=== PATIENT | male | born 1975 | race African-American/Black ===

== ENCOUNTER 2020-09-12 10:58 | Inpatient (IN) | payer MEDICAID, OTHER ==
[~2020-09-12] VITALS: Ht 188 cm; Wt 112.0 kg
[2020-09-12 13:17] LABS: CLARITY URINE CLEAR (CLEAR); COLOR URINE DARK YELLOW (YELLOW); KETONES URINE 3+ (NEGATIVE); LEUKOCYTE ESTERASE URINE NEGATIVE (NEGATIVE); NITRITE URINE NEGATIVE (NEGATIVE); OCCULT BLOOD URINE TRACE (NEGATIVE); PH URINE 5.5 (4.5-8.0); PROTEIN URINE 2+ (NEGATIVE); SPECIFIC GRAVITY URINE 1.019 (1.005-1.030)
[2020-09-12 13:38] LABS: HEMOGLOBIN. 14.6 g/dL (14.0-18.0); MEAN CORPUSCULAR VOLUME 96.5 fL (80.0-94.0); MEAN PLATELET VOLUME 9.4 fl (7.4-10.4); PLATELET 115 x1000/uL (130-400); RED BLOOD CELL COUNT 4.56 mill/uL (4.7-6.1); RED CELL DISTRIBUTION WIDTH 14.5 % (11.6-14.6)
[2020-09-12 13:48] LABS: CHLORIDE 100 mEq/L (98-107)
[2020-09-12 13:52] LABS: ETHANOL BLOOD < 10 mg/dL
[2020-09-12 14:12] LABS: *BARBITURATES SCREEN URINE NEGATIVE (NEGATIVE); *BENZODIAZEPINES SCREEN URINE NEGATIVE (NEGATIVE); *COCAINE SCREEN URINE NEGATIVE (NEGATIVE)
[2020-09-12 14:13] LABS: *AMPHETAMINES SCREEN URINE NEGATIVE (NEGATIVE); CANNABINOID URINE SCREEN NEGATIVE (NEGATIVE); METHADONE URINE SCREEN NEGATIVE (NEGATIVE); OPIATES URINE SCREEN NEGATIVE (NEGATIVE); PHENCYCLIDINE URINE SCREEN NEGATIVE (NEGATIVE)
[2020-09-12 14:18] LABS: PLATELET ESTIMATE SLIGHTLY DECREASED
[2020-09-12] MEDS ORDERED: LORAZEPAM 2MG/ML CPJ IV ONE (14:30)
[2020-09-12] MEDS: THIAMINE HCL 100MG TABLET PO SCH (15:15)
[2020-09-12] MEDS ORDERED: LORAZEPAM 2MG/ML CPJ IV PRN (15:15)
[2020-09-12] MEDS ORDERED: CLONIDINE 0.1MG TABLET PO PRN (15:15)
[2020-09-12] MEDS ORDERED: ONDANSETRON HCL 4MG/2ML INJ IV PRN (15:15)
[2020-09-12] MEDS: MULTIVITAMINS,THER W-MINERALS TABLET PO SCH (15:15)
[2020-09-12] MEDS ORDERED: ACETAMINOPHEN 325MG TABLET PO PRN (15:15)
[2020-09-12] MEDS ORDERED: POTASSIUM CHLORIDE 20MEQ TABLET SR PO NR (15:15)
[2020-09-12] MEDS ORDERED: HYDRALAZINE 20MG/ML VIAL IV PRN (15:15)
[2020-09-12] MEDS: AMLODIPINE 5MG TABLET PO SCH (17:02)
[2020-09-12] MEDS: METOPROLOL TARTRATE 25MG TABLET PO SCH (20:45)
[2020-09-12] MEDS: HEPARIN 5000 UNITS/ML VIAL SUBCUT SCH (20:45)
[2020-09-12] MEDS ORDERED: TRAZODONE HCL 50MG TABLET PO PRN (21:00)
[2020-09-12 21:16] VITALS: BP 145/99
[2020-09-12] MEDS ORDERED: CHLORDIAZEPOXIDE 25MG CAPSULE PO SCH (22:00)
[2020-09-12] MEDS ORDERED: DULO20CA18 MT (23:20)
[2020-09-12] MEDS ORDERED: ATOR20TA PO (23:21)
[2020-09-13] VITALS: BP 134/97
[2020-09-13] MEDS: CHLORDIAZEPOXIDE 25MG CAPSULE PO SCH ×4 (01:39→23:30)
[2020-09-13 04:00] VITALS: BP 154/94
[2020-09-13 08:00] VITALS: BP 142/88
[2020-09-13] MEDS: THIAMINE HCL 100MG TABLET PO SCH (08:57)
[2020-09-13] MEDS: FOLIC ACID 1MG TABLET PO SCH (08:57)
[2020-09-13] MEDS: ASPIRIN 81MG EC TABLET PO SCH (08:57)
[2020-09-13] MEDS: MULTIVITAMINS,THER W-MINERALS TABLET PO SCH (08:57)
[2020-09-13] MEDS: AMLODIPINE 5MG TABLET PO SCH (08:58)
[2020-09-13] MEDS: METOPROLOL TARTRATE 25MG TABLET PO SCH ×2 (08:58→20:54)
[2020-09-13] MEDS: HEPARIN 5000 UNITS/ML VIAL SUBCUT SCH ×2 (08:59→20:51)
[2020-09-13 12:00] VITALS: BP 138/90
[2020-09-13 15:57] VITALS: BP 136/94
[2020-09-13 16:46] LABS: HEMATOCRIT. 43.8 % (42.0-52.0); HEMOGLOBIN. 14.2 g/dL (14.0-18.0); MEAN CORPUSCULAR HEMOGLOBIN 31.7 pg (28.0-32.0); MEAN CORPUSCULAR VOLUME 97.5 fL (80.0-94.0); MEAN PLATELET VOLUME 9.3 fl (7.4-10.4); PLATELET 116 x1000/uL (130-400); RED BLOOD CELL COUNT 4.49 mill/uL (4.7-6.1); RED CELL DISTRIBUTION WIDTH 14.6 % (11.6-14.6)
[2020-09-13 17:07] LABS: CHLORIDE 100 mEq/L (98-107)
[2020-09-13] MEDS ORDERED: POTASSIUM CHLORIDE 20MEQ TABLET SR PO NR (19:15)
[2020-09-13 20:00] VITALS: BP 104/58
[2020-09-13 20:24] LABS: PLATELET ESTIMATE SLIGHTLY DECREASED
[2020-09-13] MEDS: ATORVASTATIN CALCIUM 20MG TABLET PO SCH (20:51)
[2020-09-14] VITALS: BP 114/65
[2020-09-14 04:00] VITALS: BP 118/68
[2020-09-14 07:32] LABS: HEMATOCRIT. 42.8 % (42.0-52.0); HEMOGLOBIN. 14.1 g/dL (14.0-18.0); MEAN CORPUSCULAR HEMOGLOBIN 32.4 pg (28.0-32.0); MEAN CORPUSCULAR VOLUME 98.2 fL (80.0-94.0); MEAN PLATELET VOLUME 9.7 fl (7.4-10.4); PLATELET 119 x1000/uL (130-400); RED BLOOD CELL COUNT 4.36 mill/uL (4.7-6.1); RED CELL DISTRIBUTION WIDTH 14.6 % (11.6-14.6)
[2020-09-14 07:44] LABS: CHLORIDE 103 mEq/L (98-107)
[2020-09-14 08:00] VITALS: BP 137/87
[2020-09-14 09:03] LABS: VITAMIN B12 SERUM 339 pg/mL (211-911)
[2020-09-14] MEDS ORDERED: POTASSIUM CHLORIDE 20MEQ TABLET SR PO SCH (09:15)
[2020-09-14] MEDS: HEPARIN 5000 UNITS/ML VIAL SUBCUT SCH ×2 (09:58→20:53)
[2020-09-14] MEDS: METOPROLOL TARTRATE 25MG TABLET PO SCH ×2 (09:59→20:53)
[2020-09-14] MEDS: AMLODIPINE 10MG TABLET PO SCH (09:59)
[2020-09-14] MEDS: ASPIRIN 81MG EC TABLET PO SCH (09:59)
[2020-09-14] MEDS: FOLIC ACID 1MG TABLET PO SCH (09:59)
[2020-09-14] MEDS: THIAMINE HCL 100MG TABLET PO SCH (09:59)
[2020-09-14] MEDS: MAGNESIUM GLUCONATE 500MG TABLET PO SCH (09:59)
[2020-09-14] MEDS: CHLORDIAZEPOXIDE 25MG CAPSULE PO SCH ×2 (09:59→20:53)
[2020-09-14] MEDS: MULTIVITAMINS,THER W-MINERALS TABLET PO SCH (09:59)
[2020-09-14 10:21] LABS: NUCLEATED RED BLOOD CELLS 7 /100 WBC; PLATELET ESTIMATE DECREASED
[2020-09-14 12:00] VITALS: BP 114/77
[2020-09-14] MEDS ORDERED: MAGNESIUM 2 G PREMIX 50 ML IV SCH (12:00)
[2020-09-14] MEDS: FUROSEMIDE 20MG TABLET PO SCH (13:44)
[2020-09-14 16:00] VITALS: BP 122/78
[2020-09-14 20:00] VITALS: BP 134/96
[2020-09-14] MEDS: ATORVASTATIN CALCIUM 20MG TABLET PO SCH (20:53)
[2020-09-15] VITALS: BP 120/74
[2020-09-15 04:00] VITALS: BP 107/55
[2020-09-15 07:10] LABS: HEMATOCRIT. 41.5 % (42.0-52.0); HEMOGLOBIN. 13.6 g/dL (14.0-18.0); MEAN CORPUSCULAR VOLUME 97.8 fL (80.0-94.0); MEAN PLATELET VOLUME 9.2 fl (7.4-10.4); PLATELET 127 x1000/uL (130-400); RED BLOOD CELL COUNT 4.25 mill/uL (4.7-6.1); RED CELL DISTRIBUTION WIDTH 14.6 % (11.6-14.6)
[2020-09-15 07:40] LABS: CHLORIDE 105 mEq/L (98-107)
[2020-09-15 08:00] VITALS: BP 115/74
[2020-09-15] MEDS: HEPARIN 5000 UNITS/ML VIAL SUBCUT SCH ×2 (09:00→20:58)
[2020-09-15] MEDS: ASPIRIN 81MG EC TABLET PO SCH (09:00)
[2020-09-15] MEDS: MULTIVITAMINS,THER W-MINERALS TABLET PO SCH (09:39)
[2020-09-15] MEDS: THIAMINE HCL 100MG TABLET PO SCH (09:39)
[2020-09-15] MEDS: FOLIC ACID 1MG TABLET PO SCH (09:39)
[2020-09-15] MEDS: AMLODIPINE 10MG TABLET PO SCH (09:39)
[2020-09-15] MEDS: CHLORDIAZEPOXIDE 25MG CAPSULE PO SCH (09:39)
[2020-09-15] MEDS: MAGNESIUM GLUCONATE 500MG TABLET PO SCH (09:39)
[2020-09-15] MEDS: METOPROLOL TARTRATE 25MG TABLET PO SCH ×2 (09:40→20:38)
[2020-09-15] MEDS: FUROSEMIDE 20MG TABLET PO SCH (09:40)
[2020-09-15 12:00] VITALS: BP 123/76
[2020-09-15 12:00] LABS: PLATELET ESTIMATE SLIGHTLY DECREASED
[2020-09-15 17:13] VITALS: BP 123/69
[2020-09-15 20:00] VITALS: BP 126/83
[2020-09-15] MEDS: ATORVASTATIN CALCIUM 20MG TABLET PO SCH (20:37)
[2020-09-16] VITALS: BP 128/78
[2020-09-16 04:00] VITALS: BP 110/66
[2020-09-16 08:00] VITALS: BP 118/76
[2020-09-16] MEDS: FUROSEMIDE 20MG TABLET PO SCH (08:39)
[2020-09-16] MEDS: THIAMINE HCL 100MG TABLET PO SCH (08:39)
[2020-09-16] MEDS: MAGNESIUM GLUCONATE 500MG TABLET PO SCH (08:39)
[2020-09-16] MEDS: MULTIVITAMINS,THER W-MINERALS TABLET PO SCH (08:39)
[2020-09-16] MEDS: FOLIC ACID 1MG TABLET PO SCH (08:39)
[2020-09-16] MEDS: HEPARIN 5000 UNITS/ML VIAL SUBCUT SCH (08:40)
[2020-09-16] MEDS: METOPROLOL TARTRATE 25MG TABLET PO SCH (08:40)
[2020-09-16] MEDS: AMLODIPINE 10MG TABLET PO SCH (08:40)
[2020-09-16] MEDS ORDERED: THIA100T72 PO (10:52)
[2020-09-16] MEDS ORDERED: AMLO10TA80 MT (11:15)
[2020-09-16] MEDS ORDERED: ATOR20TA PO (11:15)
[2020-09-16 11:42] VITALS: BP 115/75
[2020-09-16 12:00] VITALS: BP 115/75
[2020-09-16 13:06] LABS: ANA IFA Negative (.)
[2020-09-17 17:06] LABS: ANTI-MYELOPEROXIDASE AB < 9.0 U/mL (0.0-9.0); ANTI-PROTEINASE 3 ABS < 3.5 U/mL (0.0-3.5)
[2020-09-18 14:11] LABS: ATYPICAL P-ANCA <1:20 titer (Neg:<1:20); CYTOPLASMIC C-ANCA <1:20 titer (Neg:<1:20); PERINUCLEAR P-ANCA <1:20 titer (Neg:<1:20)
== END 2020-09-16 15:32 | disposition home or self-care (01) | DRG 199 ==
LOC: ER 10:58 → 5WST 15:01 → ENRESERV 20:18 → ER 21:10
PROVIDERS: ADMIT Internal Medicine; ATTEND Internal Medicine
DX: I16.1 Hypertensive emergency (principal); E51.2 Wernicke's encephalopathy; R26.0 Ataxic gait; E87.6 Hypokalemia; E87.1 Hypo-osmolality and hyponatremia; E83.42 Hypomagnesemia; F10.139 Alcohol abuse with withdrawal, unspecified; K70.10 Alcoholic hepatitis without ascites; D69.6 Thrombocytopenia, unspecified; M48.02 Spinal stenosis, cervical region; M48.061 Spinal stenosis, lumbar region without neurogenic claudication; M51.27 Other intervertebral disc displacement, lumbosacral region; I10 Essential (primary) hypertension; E78.00 Pure hypercholesterolemia, unspecified; E78.5 Hyperlipidemia, unspecified; R00.0 Tachycardia, unspecified; D72.819 Decreased white blood cell count, unspecified; F17.200 Nicotine dependence, unspecified, uncomplicated; G89.29 Other chronic pain; M54.9 Dorsalgia, unspecified; I31.3 Pericardial effusion (noninflammatory); K76.0 Fatty (change of) liver, not elsewhere classified; Y90.9 Presence of alcohol in blood, level not specified; Z91.14 Patient's other noncompliance with medication regimen; Z91.19 Patient's noncompliance with other medical treatment and regimen; Z79.899 Other long term (current) drug therapy
CPT/HCPCS: 36415; 70551; 71045; 72141; 72146; 72148; 76705; 80048; 80053; 80061; 80076; 80305; 80320; 81003; 82607; 83036; 83520; 83735; 83880; 84443; 85025; 85651; 86256; 92610; 93005; 93306; 97116; 97162; 97166; 97530; 99285; J0360; J1644; J2060; J3475; G0480

== ENCOUNTER 2023-03-20 19:09 | Emergency (ER) | payer MEDICAID, OTHER ==
[~2023-03-20] VITALS: Ht 188 cm; Wt 135.0 kg
[~2023-03-20 19:09] MED LIST: AMLO10TA80 MT; ATOR20TA PO; DULO20CA18 MT; ONDA4TAB50 MT; PROT40 MT; THIA100T72 PO
[2023-03-20 19:19] VITALS: BP 188/115; RESP 20; TEMP 98.3; O2SAT 95
[2023-03-20 19:36] VITALS: PULSE 118
[2023-03-20] MEDS ORDERED: AMLODIPINE 10MG TABLET PO ONE (20:00)
[2023-03-20] MEDS ORDERED: DOXYCYCLINE HYCLATE 100MG CAPSULE PO ONE (20:00)
[2023-03-20] MEDS ORDERED: CEFTRIAXONE SODIUM 500 MG/VIAL IM ONE (20:00)
[2023-03-20 20:44] LABS: CLARITY URINE CLEAR (CLEAR); COLOR URINE DARK YELLOW (YELLOW); GLUCOSE URINE NEGATIVE (NEGATIVE); KETONES URINE TRACE (NEGATIVE); LEUKOCYTE ESTERASE URINE TRACE (NEGATIVE); NITRITE URINE NEGATIVE (NEGATIVE); OCCULT BLOOD URINE 2+ (NEGATIVE); PH URINE 5.5 (4.5-8.0); PROTEIN URINE 3+ (NEGATIVE); SPECIFIC GRAVITY URINE 1.042 (1.005-1.030)
[2023-03-20 20:47] LABS: BACTERIA URINE NONE SEEN; SQUAMOUS EPITHELIAL CELL URINE 1+ /lpf (RARE/1+); YEAST URINE NONE SEEN
[2023-03-20] MEDS: AMLODIPINE 5MG TABLET PO NR ×2 (21:17→22:16)
[2023-03-20] MEDS ORDERED: AMLO10TA80 MT (21:46)
[2023-03-20] MEDS ORDERED: DOXY-456 MT (21:46)
[2023-03-25 04:08] LABS: CHLAMYDIA TRACHOMATIS NAA Negative (Negative); NEISSERIA GONORRHOEAE NAA Negative (Negative)
== END 2023-03-20 22:19 | disposition home or self-care (01) ==
LOC: ER 19:09
DX: A64 Unspecified sexually transmitted disease (principal); I10 Essential (primary) hypertension; E78.00 Pure hypercholesterolemia, unspecified; Z79.899 Other long term (current) drug therapy
CPT/HCPCS: 87491; 87591; 81003; 96372; 99285; J0696; Z7610 ×2

== ENCOUNTER 2023-05-04 19:53 | Emergency (ER) | payer MEDICAID, OTHER ==
[~2023-05-04] VITALS: Ht 188 cm; Wt 136.0 kg
[~2023-05-04 19:53] MED LIST changes: +DOXY-456 MT
[2023-05-04 20:17] VITALS: O2SAT 95
[2023-05-04 20:22] LABS: HEMATOCRIT. 37.9 % (42.0-52.0); HEMOGLOBIN. 12.6 g/dL (14.0-18.0); MEAN CORPUSCULAR HEMOGLOBIN 35.4 pg (28.0-32.0); MEAN CORPUSCULAR HGB CONC 33.3 g/dL (31.0-37.0); MEAN CORPUSCULAR VOLUME 106.2 fL (80.0-94.0); MEAN PLATELET VOLUME 7.5 fl (7.4-10.4); PLATELET 237 x1000/uL (130-400); RED BLOOD CELL COUNT 3.57 mill/uL (4.7-6.1); RED CELL DISTRIBUTION WIDTH 17.4 % (11.6-14.6); WHITE BLOOD COUNT 8.7 x1000/uL (4.5-11.0)
[2023-05-04 20:23] LABS: DIFFERENTIAL COMMENT 1
[2023-05-04 20:30] LABS: CHLORIDE 106 mEq/L (98-107); INDEX HEMOLYSI 1 (1-3); INDEX ICTERIC 1 (1-4); INDEX LIPEMIC 1 (1-3); SODIUM 139 mEq/L (136-145)
[2023-05-04 20:36] LABS: ALANINE AMINOTRANSFERASE 70 IU/L (13-61); ALBUMIN 3.3 g/dL (3.4-5.0); ASPARTATE AMINOTRANSFERASE 82 IU/L (15-37); BILIRUBIN TOTAL 0.4 mg/dL (0.1-1.0); CALCIUM 7.7 mg/dL (8.5-10.1); CARBON DIOXIDE 25 mEq/L (21-32); CREATININE 1.1 mg/dL (0.6-1.3); GLUCOSE 121 mg/dL (70-105); PROTEIN TOTAL 8.1 g/dL (6.0-8.3); UREA NITROGEN BLOOD 8 mg/dL (7-21)
[2023-05-04 21:19] LABS: PLATELET ESTIMATE NORMAL
[2023-05-04 21:20] LABS: ANISOCYTOSIS 1+
[2023-05-05 04:24] LABS: CLARITY URINE CLOUDY (CLEAR); COLOR URINE DARK YELLOW (YELLOW); GLUCOSE URINE NEGATIVE (NEGATIVE); KETONES URINE NEGATIVE (NEGATIVE); LEUKOCYTE ESTERASE URINE NEGATIVE (NEGATIVE); NITRITE URINE NEGATIVE (NEGATIVE); OCCULT BLOOD URINE NEGATIVE (NEGATIVE); PH URINE 5.5 (4.5-8.0); PROTEIN URINE 1+ (NEGATIVE); SPECIFIC GRAVITY URINE 1.028 (1.005-1.030)
[2023-05-05 04:27] LABS: BACTERIA URINE NONE SEEN; RBC URINE NONE SEEN /hpf (0-2); WBC URINE 0-2 /hpf (0-2); YEAST URINE NONE SEEN
[2023-05-05] MEDS ORDERED: METH-653 MT (05:27)
[2023-05-05] MEDS ORDERED: IBUP-2029 MT (05:27)
[2023-05-05 05:34] VITALS: BP 135/75; PULSE 70; RESP 14; TEMP 98.2
[2023-05-05 05:43] LABS: AMORPHOUS SEDIMENT URINE 2+ /lpf; SQUAMOUS EPITHELIAL CELL URINE RARE /lpf (RARE/1+)
== END 2023-05-05 05:35 | disposition home or self-care (01) ==
LOC: ER 21:39
DX: K80.20 Calculus of gallbladder without cholecystitis without obstruction (principal); M54.50 Low back pain, unspecified; E78.00 Pure hypercholesterolemia, unspecified; I10 Essential (primary) hypertension; Z98.890 Other specified postprocedural states
CPT/HCPCS: 36415; 74176; 80053; 81003; 83880; 85025; 93970; 99284

== ENCOUNTER 2023-09-24 04:45 | Emergency (ER) | payer MEDICAID, OTHER ==
[~2023-09-24] VITALS: Ht 190.5 cm; Wt 1363.0 kg
[~2023-09-24 04:45] MED LIST changes: +IBUP-2029 MT; +METH-653 MT
[2023-09-24 04:57] VITALS: O2SAT 97
[2023-09-24] MEDS ORDERED: IBUPROFEN 800MG TABLET PO ONE (05:45)
[2023-09-24] MEDS: IBUPROFEN 400MG TABLET PO NR (06:22)
[2023-09-24 06:23] VITALS: TEMP 97.7
[2023-09-24] MEDS ORDERED: IBUP-2030 PO (07:06)
[2023-09-24 07:08] VITALS: BP 137/87; PULSE 88; RESP 14
== END 2023-09-24 07:32 | disposition home or self-care (01) ==
LOC: ER 04:45
DX: M25.562 Pain in left knee (principal); I10 Essential (primary) hypertension
CPT/HCPCS: 73562; 99283